=== PATIENT | female | born 1960 | race Caucasian/White ===

== ENCOUNTER → 2022-11-20 | Outpatient (CLI) | payer BC ==
[2022-11-20 10:44] LABS: Chol/HDL Ratio 3.46 Ratio; Creatine Kinase 74 U/L (26-186); LDL Cholesterol,Calculated 168.8 mg/dL (0.0-131.0)
--- NOTE | 2022-11-21 08:31 | MM ---
Reason for Exam: Screening (asymptomatic). Last mammogram was performed 2 year(s) and 0 month(s) ago. Patient History: Menarche at age 14. First Full-Term at age 18. Postmenopausal. Risk Values: Luzma 5 year model risk: 1.0%. NCI Lifetime model risk: 4.6%. Prior Study Comparison: 02/08/2018 Bilateral MG 3D screening mammo w/cad, [place]. 12/08/2020 Bilateral MG 3D screening mammo w/cad, [place]. Tissue Density: The breast tissue is heterogeneously dense. This may lower the sensitivity of mammography. Findings: Analyzed By CAD. There is no suspicious group of microcalcifications or new suspicious mass in either breast. Stable chronic nodularity within both breasts. Overall Assessment: Benign, BI-RAD 2 Management: Screening Mammogram of both breasts in 1 year. A clinical breast exam by your physician is recommended on an annual basis and results should be correlated with mammographic findings. Electronically signed and approved by: Davon Willis D.O.
== END | disposition home or self-care (01) ==
LOC: RADMAMWWP 06:47
PROVIDERS: ATTEND Family Medicine
DX: Z12.31 Encounter for screening mammogram for malignant neoplasm of breast (principal); E78.5 Hyperlipidemia, unspecified; Z78.0 Asymptomatic menopausal state
CPT/HCPCS: 77067; 80061; 82550

== ENCOUNTER 2023-01-30 11:58 | Day surgery (SDC) | payer BC ==
[2023-01-29 12:50] VITALS: BMI 22.3
[~2023-01-30 11:58] MED LIST: LACTATED RINGERS 1,000 ML IV SCH
[2023-01-30 12:25] VITALS: TEMP 97.3
[2023-01-30] MEDS ORDERED: PROPOFOL 10 MG/ML 20 ML VIAL IV ONE (12:57)
[2023-01-30] MEDS ORDERED: LIDOCAINE 2% INJ 20 MG/ML (2 ML VIAL) ONE (12:57)
--- NOTE | 2023-01-30 13:16 | P.PCN ---
Date of Procedure: 01/30/23 Procedure(s) Performed: BRIEF HISTORY: Patient is a 62-year-old pleasant white female scheduled for an elective colonoscopy as a part of screening for colon cancer. PROCEDURE PERFORMED: Colonoscopy. PREOPERATIVE DIAGNOSIS: Screening for colon cancer. IV sedation per Anesthesia. PROCEDURE: After informed consent was obtained, the patient, was brought into the endoscopy unit. IV sedation was administered by Anesthesia under continuous monitoring. Digital rectal examination was normal. Initially the Olympus CF-160 flexible video colonoscope was then inserted in the rectum, gradually advanced into the cecum without any difficulty. Careful examination was performed as the scope was gradually being withdrawn. Ileocecal valve and the appendiceal orifice were visualized and appeared normal. Prep was excellent. Mucosa of the cecum, ascending colon, transverse colon, descending colon, sigmoid colon, and rectum appeared normal. Retroflexion was performed in the rectum and no lesions were seen. The patient tolerated the procedure well. IMPRESSION: Normal-appearing colon from rectum to cecum with no evidence of colorectal neoplasia. RECOMMENDATIONS: Findings of this examination were discussed with the patient well as her family. She was advised to have a repeat screening colonoscopy in 10 years..
[2023-01-30 13:22] VITALS: RESP 16
[2023-01-30 13:38] VITALS: BP 109/84; PULSE 73
== END 2023-01-30 13:57 | disposition home or self-care (01) ==
LOC: ORWHC2ENDO 11:58
PROVIDERS: ATTEND Internal Medicine Gastroenterology
DX: Z12.11 Encounter for screening for malignant neoplasm of colon (principal); E78.5 Hyperlipidemia, unspecified; Z79.899 Other long term (current) drug therapy; Z98.890 Other specified postprocedural states
CPT/HCPCS: 45378; J2704; J2001

== ENCOUNTER → 2023-02-02 | Outpatient (CLI) | payer BC ==
--- NOTE | 2023-02-04 21:35 | MR ---
EXAMINATION TYPE: MR shoulder LT wo con DATE OF EXAM: 02/02/2023 COMPARISON: None. HISTORY: LT SHOULDER PAIN with difficulty raising arm overhead for 6 to 8 weeks TECHNIQUE: Multiplanar, multisequence imaging of the left shoulder is performed without contrast. FINDINGS: Rotator Cuff: Some increased signal supraspinatus and infraspinatus tendons. No tearing is evident. R otator cuff muscle bulk is preserved. Acromioclavicular Joint: Mild to moderate narrowing without significant spurring. Type II downsloping acromion. Glenohumeral Joint: Small to moderate-sized joint effusion. Some narrowing without significant spurri ng Labrum: The labrum appears grossly intact given limitation of non-arthrogram study. Biceps Tendon: The long head of biceps is in normal location within bicipital groove. Bone marrow signal: Subchondral cystic change posterior lateral aspect of the superior humeral head. Additional subchondral cystic change superior osseous glenoid. Other: No additional significant abnormality is appreciated. IMPRESSION: Tendinosis of the supraspinatus and infraspinatus tendons. Type II downsloping acromion. Correlate for underlying impingement. Moderate glenohumeral joint arthropathy noted as detailed above .
== END | disposition home or self-care (01) ==
LOC: RADMRIMAIN 09:31
PROVIDERS: ATTEND Physician Assistant Medical
DX: M19.012 Primary osteoarthritis, left shoulder (principal); M67.814 Other specified disorders of tendon, left shoulder

== ENCOUNTER → 2024-01-17 | Outpatient (CLI) | payer BC ==
--- NOTE | 2024-01-18 08:43 | MM ---
Reason for Exam: Screening (asymptomatic). Last mammogram was performed 1 year(s) and 2 month(s) ago. Patient History: Menarche at age 14. First Full-Term at age 18. Postmenopausal. Risk Values: Luzma 5 year model risk: 1.0%. NCI Lifetime model risk: 4.4%. Prior Study Comparison: 02/08/2018 Bilateral MG 3D screening mammo w/cad, [place]. 12/08/2020 Bilateral MG 3D screening mammo w/cad, [place]. 11/20/2022 Bilateral MG screening mammo w CAD, [facility]. Tissue Density: The breasts are heterogeneously dense, which may obscure small masses. Findings: Analyzed By CAD. There is no suspicious group of microcalcifications or new suspicious mass in either breast. Overall Assessment: Benign, BI-RAD 2 Management: Screening Mammogram of both breasts in 1 year. . Patient should continue monthly self-breast exams. A clinical breast exam by your physician is recommended on an annual basis. This exam should not preclude additional follow-up of suspicious palpable abnormalities. Note on Luzma scores and lifetime risk: 1. A Luzma score greater than 3% is considered moderate risk. If this is the case, consider specialist referral to assess eligibility for a risk reducing agent. 2. If overall lifetime risk for the development of breast cancer is 20% or higher, the patient may qualify for future screening with alternating mammogram and breast MRI. Electronically signed and approved by: William Dunlap M.D. Radiologis
== END | disposition home or self-care (01) ==
LOC: RADMAMWWP 07:59
PROVIDERS: ATTEND Family Medicine
DX: Z12.31 Encounter for screening mammogram for malignant neoplasm of breast (principal); Z78.0 Asymptomatic menopausal state
CPT/HCPCS: 77067

== ENCOUNTER → 2024-01-29 | Outpatient (CLI) | payer BC ==
--- NOTE | 2024-01-30 10:02 | CTL ---
EXAMINATION TYPE: CT Low Dose Lung DATE OF EXAM: 01/29/2024 10:30 AM CLINICAL INDICATION:Female, 63 years old with history of Z87.891 personal hx tobacco use; Personal hi story of tobacco use and cough. , history of tobacco use. COMPARISON: None. TECHNIQUE: Multiple axial non-contrast scans were obtained from approximately the lung apices through the upper abdomen. Coronal and sagittal reformatted images were obtained. Low dose technique was uti lized. CT DLP: 75.8 mGycm, Automated exposure control for dose reduction was used. CT Contrast: Contrast used: None Oral contrast used: None FINDINGS: ======== Lack of intravenous contrast and low dose technique limits the evaluation of the vascular and soft ti ssue structures. LUNGS: No evidence of pulmonary fibrosis. No evidence of focal consolidation, pneumothorax or pleural effusion. Nodules: RUL: None. RML: None. RLL: None. CHRISTOPH: None. LLL: None. AIRWAY: Patent and unremarkable. HEART: Size within normal limits. MEDIASTINUM: No gross evidence of adenopathy. VASCULATURE: No aortic aneurysm. MUSCULOSKELETAL: No acute osseous abnormalities SOFT TISSUES/LYMPH NODES: Unremarkable. LOWER NECK: No significant findings. UPPER ABDOMEN: No significant findings. IMPRESSION: 1. No clinically significant pulmonary nodules. CT LUNG RAD AND CT CHEST RECOMMENDATION: Lung-Rad 1 Negative: Continue annual screening with LDCT in 12 months. S Modifier (other clinically significant findings): Pronounced calcific coronary artery disease. Recommend smoking cessation (if current smoker), or continuation of smoking cessation (if prior smoke r). Annual screening for lung cancer with low-dose computed tomography is recommended in adults ages 55 to 77 years who have a 30 pack-year smoking history and currently smoke or have quit within the pa st 15 years. Screening should be discontinued once a person has not smoked for 15 years or develops a health problem that substantially limits life expectancy or the ability or willingness to have curat laura lung surgery. Lung rads 2021 [email or web address]
== END | disposition home or self-care (01) ==
LOC: RADCTMAIN 09:43
PROVIDERS: ATTEND Family Medicine
DX: Z12.2 Encounter for screening for malignant neoplasm of respiratory organs (principal); I25.10 Atherosclerotic heart disease of native coronary artery without angina pectoris; Z87.891 Personal history of nicotine dependence
CPT/HCPCS: 71271; 84425

== ENCOUNTER → 2024-08-14 | Outpatient (CLI) | payer BC ==
--- NOTE | 2024-08-14 12:05 | US ---
EXAMINATION TYPE: US transvaginal DATE OF EXAM: 08/14/2024 COMPARISON: NONE CLINICAL INDICATION: Female, 64 years old with history of N95.0 POSTMENOPAUSAL BLEEDING; spotting aft er intercourse. TECHNIQUE: Transvaginal (TV). Date of LMP: [employer], EXAM MEASUREMENTS: Uterus: 4.9 x 3.2 x 2.4 cm Endometrial Stripe: 0.1 cm 1. Uterus: Anteverted Heterogenous. Peripheral vascularity. 2. Endometrium: wnl 3. Right Ovary: Obscured by overlying bowel gas 4. Left Ovary: Obscured by overlying bowel gas 5. Bilateral Adnexa: Prominent vessels seen in left adnexa 6. Posterior cul-de-sac: No free fluid IMPRESSION: 1. The uterus is heterogeneous without evidence of focal fibroid. Finding is nonspecific can be assoc iated with adenomyosis. Other etiologies not excluded. Recommend follow-up MRI. 2. Nonvisualization of the ovaries likely secondary to overlying bowel gas. 3. Prominent vessels in the left adnexa likely related to pelvic varices. [facility], , 08/14/2024 12:03 PM
== END | disposition home or self-care (01) ==
LOC: RADUSWWP 06:58
PROVIDERS: ATTEND Family Medicine
DX: N95.0 Postmenopausal bleeding (principal)
CPT/HCPCS: 76830

== ENCOUNTER → 2025-03-05 | Outpatient (CLI) | payer BC ==
--- NOTE | 2025-03-09 14:21 | MM ---
Reason for Exam: Screening (asymptomatic). Last mammogram was performed 1 year(s) and 1 month(s) ago. Patient History: Menarche at age 14. First Full-Term at age 18. Postmenopausal. Risk Values: Luzma 5 year model risk: 1.1%. NCI Lifetime model risk: 4.3%. Prior Study Comparison: 12/08/2020 Bilateral MG 3D screening mammo w/cad, [place]. 11/20/2022 Bilateral MG screening mammo w CAD, [place]. 01/17/2024 Bilateral MG screening mammo w CAD, [facility]. Tissue Density: There are scattered areas of fibroglandular density. Findings: Analyzed By CAD. There is no suspicious group of microcalcifications or new suspicious mass in either breast. Overall Assessment: Benign, BI-RAD 2 Management: Screening Mammogram of both breasts in 1 year. . Patient should continue monthly self-breast exams. A clinical breast exam by your physician is recommended on an annual basis. This exam should not preclude additional follow-up of suspicious palpable abnormalities. Note on Luzma scores and lifetime risk: 1. A Luzma score greater than 3% is considered moderate risk. If this is the case, consider specialist referral to assess eligibility for a risk reducing agent. 2. If overall lifetime risk for the development of breast cancer is 20% or higher, the patient may qualify for future screening with alternating mammogram and breast MRI. [facility], , 03/05/2025 12:46 PM. Electronically signed and approved by: William Dunlap M.D. Radiologis
== END | disposition home or self-care (01) ==
LOC: RADMAMWWP 12:28
PROVIDERS: ATTEND Family Medicine
DX: Z12.31 Encounter for screening mammogram for malignant neoplasm of breast (principal); R92.323 Mammographic fibroglandular density, bilateral breasts; Z78.0 Asymptomatic menopausal state
CPT/HCPCS: 77063; 77067